=== PATIENT | female | born 1985 | race African-American/Black ===

== ENCOUNTER 2016-07-16 07:20 | Emergency (ER) | payer SELFPAY ==
[2016-07-16] MEDS ORDERED: Ketorolac INJ* 60 MG/2 ML VIAL IM ONE (07:53)
[2016-07-16 08:13] LABS: Urine Bilirubin Negative (Negative); Urine Glucose Negative (Negative); Urine Nitrite Negative (Negative)
--- NOTE | 2016-07-16 08:17 | ED ---
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 States pain has been present for a few days, but became worse last night. Denies urinary symptoms. Pain is worse while arms are raised and standing and radiates to the left rib area. Improved with sitting. Sensitive to the touch. Pain is achy and stabbing intermittently. Denies chest pain or pressure. Denies fever. Denies abdominal pain or PMHx of kidney stones or UTI. Denies numbness or tingling in her arms. Denies trauma, recent surgeries, recent travel. Patient not on BC. - History of Current Complaint Chief Complaint: EDBackInjuryPain Stated Complaint: LT SIDE FLANK PAIN Time Seen by Provider: 07/16/16 07:31 Hx Obtained From: Patient Onset/Duration: Gradual Onset Onset/Duration: Started Days Ago Timing: Intermittent Back Pain Location: Is Discrete @ - left sided thoracic back Severity Initially: Moderate Severity Currently: Moderate Pain Intensity: 9 Pain Scale Used: 0-10 Numeric Character: Sharp, Aching Aggravating Symptom(s): Movement, Lifting Alleviating Symptom(s): Rest, Position Associated Signs And Symptoms: Positive: Negative - Risk Factors AAA Risk Factors: Negative TAD Risk Factors: Negative Cauda Equina Risk Factors: Negative Epidural Abscess Risk Factors: Negative - Allergies/Home Medications Allergies/Adverse Reactions: Allergies Allergy/AdvReac Type Severity Reaction Status Date / Time No Known Allergies Allergy Verified 05/27/14 11:13 PMH/Surg Hx/FS Hx/Imm Hx Previously Healthy: Yes Psychiatric History: Reports: Hx Anxiety, Hx Depression Infectious Disease History: No Infectious Disease History: Denies: Traveled Outside the [place] in Last 30 Days - Social History Occupation: Employed Full-time Lives: With Family Alcohol Use: None Substance Use Type: Reports: None Smoking Status (MU): Light Every Day Tobacco Smoker Type: Cigarettes Have You Smoked in the Last Year: Yes Review of Systems Constitutional: Negative Eyes: Negative Cardiovascular: Negative Positive: Shortness Of Breath - feels does not want to take a breath d/t back pain Gastrointestinal: Negative Genitourinary: Negative Positive: Myalgia - discrete at left thoracic side, Decreased ROM - unable to raise arms bilaterally d/t pain in back Skin: Negative Neurological: Negative Psychological: Normal All Other Systems Reviewed And Are Negative: Yes Physical Exam Triage Information Reviewed: Yes Vital Signs On Initial Exam: Initial Vitals Temp Pulse Resp BP Pulse Ox 97.8 F 92 16 147/79 99 07/16/16 07:23 07/16/16 07:23 07/16/16 07:23 07/16/16 07:23 07/16/16 07:23 Vital Signs Reviewed: Yes Appearance: Positive: Well-Appearing, Well-Nourished, Pain Distress Skin: Positive: Warm Head/Face: Positive: Normal Head/Face Inspection Eyes: Positive: EOMI Neck: Positive: Supple, Nontender Respiratory/Lung Sounds: Positive: Clear to Auscultation Cardiovascular: Positive: Normal Bowel Sounds: Positive: Present Musculoskeletal: Positive: Limited @ - left sided thoracic area - unable to raise arms bilaterally, Pain @ - left thoracic back Neurological: Positive: Sensory/Motor Intact, Reflexes Intact, Speech Normal Psychiatric: Positive: Normal AVPU Assessment: Alert Diagnostics - Vital Signs Vital Signs Temp Pulse Resp BP Pulse Ox 07/16/16 07:23 97.8 F 92 16 147/79 99 - Laboratory Lab Statement: Any lab studies that have been ordered have been reviewed, and results considered in the medical decision making process. Back Pain Course/Dx - Course Course Of Treatment: UA WNL. Pain reproducible on palpation of area and during physical exam while raising arms. This pain is likely muscular. Patient given toradol with improvement of symptoms. Rx for flexiril and follow up with PCP. Patient agrees with plan. - Diagnoses Differential Diagnosis/HQI/PQRI: Positive: Herniated Disc, Strain, Sprain Provider Diagnoses: Muscle strain of left upper back Images - Images Full Body (No Head): 1 - pain, tightness, tenderness on palpation Discharge - Discharge Plan Condition: Stable Disposition: HOME Patient Education Materials: Muscle Strain (ED) Additional Instructions: Dx. Muscle Strain Flexeril: This medication is a muscle relaxant and can help relieve muscle spasms, muscle strain, or pain sensations. Flexeril can cause side effects that may impair your thinking or reactions. Be careful if you drive or do anything that requires you to be awake and alert. Avoid drinking alcohol, which can increase some of the side effects of Flexeril. Ibuprofen 600mg three times daily with meals as needed for pain and inflammation. Heating pad to the area (preferably moist heat) several times per day until discomfort has subsided. Follow up with your PCP.
[2016-07-16] MEDS ORDERED: Cyclobenzaprine TAB* 10 MG PO ONE (08:42)
[2016-07-16 09:02] VITALS: BP 138/71
== END 2016-07-16 09:00 | disposition home or self-care (01) ==
LOC: ED 07:20
DX: M54.9 Dorsalgia, unspecified (principal); F17.210 Nicotine dependence, cigarettes, uncomplicated; R06.02 Shortness of breath
CPT/HCPCS: 81003; 96372; 99282; A9270-GY; J1885

== ENCOUNTER 2016-11-16 08:14 | Emergency (ER) | payer SELFPAY ==
--- NOTE | 2016-11-16 10:28 | UC ---
Throat Pain/Nasal Shreman HPI - HPI Summary HPI Summary: 31 y/o female presents to the clinic c/o of RT jaw pain and sore throat for the past 2 days. Pt denies fever , cough, SOB, N/V/D. chest pain, sick contact , abdominal pain. Patient states her pain is 7/10 and is difficulty to swallow and associated with RT ear pain. - History of Current Complaint Hx Obtained From: Patient Hx Last Menstrual Period: 11/16/16 ?: No Onset/Duration: Gradual Onset, Lasting Days, Still Present Severity: Moderate Pain Intensity: 7 Pain Scale Used: 0-10 Numeric Associated Signs & Symptoms: Positive: Dysphagia, Other - RT jaw pain and ear pain. Negative: Sinus Discomfort, Nasal Discharge, Fever, Vomiting, Rash - Epiglottits Risk Factors Epiglottis Risk Factors: Negative <Tressa Ruano - Last Filed: 11/16/16 11:06> <Vannessa Vee - Last Filed: 11/16/16 14:35> - History of Current Complaint Chief Complaint: UCEar Stated Complaint: EAR COMPLAINT Time Seen by Provider: 11/16/16 10:26 - Allergies/Home Medications Allergies/Adverse Reactions: Allergies Allergy/AdvReac Type Severity Reaction Status Date / Time No Known Allergies Allergy Verified 11/16/16 08:54 PMH/Surg Hx/FS Hx/Imm Hx Previously Healthy: Yes - Surgical History Surgical History: None - Family History Known Family History: Positive: Cardiac Disease, Hypertension - Social History Occupation: Employed Full-time Lives: With Family Alcohol Use: Occasionally Substance Use Type: None Smoking Status (MU): Light Every Day Tobacco Smoker Type: Cigarettes Amount Used/How Often: 4-5 CIG/DAY Have You Smoked in the Last Year: Yes Household Exposure Type: Cigarettes - Immunization History Most Recent Influenza Vaccination: FALL 2015 Most Recent Tetanus Shot: 03/07/14 Most Recent Pneumonia Vaccination: never <Tressa Ruano - Last Filed: 11/16/16 11:06> Review of Systems Constitutional: Negative Skin: Negative Eyes: Negative ENT: Sore Throat, Ear Ache Respiratory: Negative Cardiovascular: Negative Gastrointestinal: Negative Genitourinary: Negative Motor: Negative Neurovascular: Negative Musculoskeletal: Negative Neurological: Negative Psychological: Negative All Other Systems Reviewed And Are Negative: Yes <Tressa Ruano - Last Filed: 11/16/16 11:06> Physical Exam Triage Information Reviewed: Yes Vital Signs: Initial Vital Signs Temp 98.8 F 11/16/16 08:55 Pulse 78 11/16/16 08:55 Resp 16 11/16/16 08:55 BP 130/74 11/16/16 08:55 Pulse Ox 99 11/16/16 08:55 - Additional Comments Vital signs reviewed Physical exam: General: Well developed, well-nourished patient with NAD. Head and face: Normocephalic and atraumatic Eyes: PERRLA, EOMI x 2. Normal conjunctiva. No eye discharge. ENT: Ears and TM with normal limits. Nose: with pink mucosa and no nasal discharge. Pharynx with mild erythema, no exudate. Neck: Supple, no JVD, no carotid bruits and positive RT anterior cervical lymphadenopathy swollen and and tender to palpation.. Lungs: clear, no rales, no rhonchi, no wheezes. CVS: RRR, S1 and S2 present no murmurs or gallops appreciated. Abdomen: soft nontender with positive bowel sounds. Extremities: no edema noted. Neuro: WNL. <Tressa Ruano - Last Filed: 11/16/16 11:06> Vital Signs: Initial Vital Signs Temp 98.8 F 11/16/16 08:55 Pulse 78 11/16/16 08:55 Resp 16 11/16/16 08:55 BP 130/74 11/16/16 08:55 Pulse Ox 99 11/16/16 08:55 <Vannessa Vee - Last Filed: 11/16/16 14:35> Throat Pain/Nasal Course/Dx - Course Course Of Treatment: Soret throat with RT jaw pain and ear pain: Hx obtained. PE abnormal finding: Nose: with pink mucosa and no nasal discharge. Pharynx with mild erythema, no exudate. Neck: Supple, no JVD, no carotid bruits and positive RT anterior cervical lymphadenopathy swollen and and tender to palpation.. Rapid strep ordered. Results: negative. Pt requested Ibuprofen at the clinic since for pain. Pt tolerated well medicationa and pain decrease. 09/12. PT advised to Increase fluid intake and rest. Use Ibuprofen with the stomach full to decrease inflammation, and alleviate symptoms. Return to the clinic or call your PCP if symptoms do not improve. Pt understood and agreed - Differential Dx/Diagnosis Differential Diagnosis/HQI/PQRI: Laryngitis, Otitis Media, Peritonsillar Abscess , Pharyngitis, Tonsillitis, URI Provider Diagnoses: viral pharyngitis. <Tressa Ruano - Last Filed: 11/16/16 11:06> Discharge <Tressa Ruano - Last Filed: 11/16/16 11:06> <Vannessa Vee - Last Filed: 11/16/16 14:35> - Discharge Plan Condition: Stable Disposition: HOME Prescriptions: Ibuprofen TAB* [Motrin TAB* 800 MG] 800 mg PO Q6H #20 tab Patient Education Materials: Pharyngitis (ED) Referrals: No Primary Care Phys,NOPCP [Primary Care Provider] - [facility] [place] [Outside] Additional Instructions: Please Increase fluid intake and rest. Use Ibuprofen with the stomach full to decrease inflammation, and alleviate symptoms. Return to the clinic or call your PCP if symptoms do not improve.
[2016-11-16] MEDS ORDERED: Ibuprofen TAB* 400 MG PO ONE (10:47)
[2016-11-16 11:26] VITALS: BP 139/78
== END 2016-11-16 11:15 | disposition home or self-care (01) ==
LOC: UCEAST 08:14
DX: J02.8 Acute pharyngitis due to other specified organisms (principal); B97.89 Other viral agents as the cause of diseases classified elsewhere; F17.210 Nicotine dependence, cigarettes, uncomplicated
CPT/HCPCS: 87651; 99212; A9270-GY; G0463

== ENCOUNTER 2017-03-29 10:32 | Emergency (ER) | payer OTHER ==
[2017-03-29 11:52] LABS: Manual Entry Verification CAS0014; UR Preg Internal Control QC Line Present
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
[2017-03-29 12:15] VITALS: BP 124/81
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
== END 2017-03-29 12:50 | disposition home or self-care (01) ==
LOC: ED 10:32
DX: S06.9X9A Unspecified intracranial injury with loss of consciousness of unspecified duration, initial encounter (principal); S00.93XA Contusion of unspecified part of head, initial encounter; W22.8XXA Striking against or struck by other objects, initial encounter; Y93.89 Activity, other specified; Y92.89 Other specified places as the place of occurrence of the external cause; R11.2 Nausea with vomiting, unspecified; R51 Headache; Z32.02 Encounter for pregnancy test, result negative; F41.9 Anxiety disorder, unspecified; F32.9 Major depressive disorder, single episode, unspecified; F17.210 Nicotine dependence, cigarettes, uncomplicated
CPT/HCPCS: 70450; 81025; 99282

== ENCOUNTER 2018-01-26 22:36 | Emergency (ER) | payer OTHER ==
--- NOTE | 2018-01-26 23:45 | ED ---
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. She describes the pain as pressure and discomfort. She states the pain radiates to the back. The patient rates the pain 8/10 in severity. Symptoms aggravated by stretching and movement. Symptoms alleviated by nothing. Patient reports shortness of breath and nausea since resolved. She additionally complains of back pain that began this morning. Patient is a smoker. She has cardiac FHx. - History of Current Complaint Chief Complaint: EDChestPainROMI Time Seen by Provider: 01/26/18 23:36 Hx Obtained From: Patient Onset/Duration: Started Hours Ago - 17:00 today, Still Present Timing: Constant Current Severity: Severe Pain Intensity: 8 Pain Scale Used: 0-10 Numeric Chest Pain Radiates: Yes Chest Pain Radiates To:: Back Character: Pressure/Squeezing, Other: - discomfort Aggravating Factor(s): Movement, Other: - stretching Alleviating Factor(s): Nothing Associated Signs and Symptoms: Positive: Other: - shortness of breath and nausea since resolved - Allergy/Home Medications Allergies/Adverse Reactions: Allergies Allergy/AdvReac Type Severity Reaction Status Date / Time No Known Allergies Allergy Verified 01/26/18 23:35 PMH/Surg Hx/FS Hx/Imm Hx Previously Healthy: No Endocrine/Hematology History: Denies: Hx Anticoagulant Therapy, Hx Diabetes Psychiatric History: Reports: Hx Anxiety, Hx Depression - Immunization History Date of Influenza Vaccine: 02/2017 Infectious Disease History: No Infectious Disease History: Denies: Traveled Outside the [place] in Last 30 Days - Family History Known Family History: Positive: Cardiac Disease, Hypertension - Social History Alcohol Use: Occasionally Hx Substance Use: No Substance Use Type: Reports: None Hx Tobacco Use: Yes Smoking Status (MU): Light Every Day Tobacco Smoker Type: Cigarettes Amount Used/How Often: 4-5 CIG/DAY Have You Smoked in the Last Year: Yes Review of Systems Positive: Chest Pain Positive: Shortness Of Breath Positive: Nausea - since resolved All Other Systems Reviewed And Are Negative: Yes Physical Exam - Summary Physical Exam Summary: Appearance: Well-appearing, Well-nourished, lying in bed comfortably Skin: Warm, dry, no obvious rash Eyes: sclera anicteric, no conjunctival pallor ENT: mucous membranes moist, pharynx appears normal Neck: Supple, nontender Respiratory: Clear to auscultation, no signs of respiratory distress Cardiovascular: Normal S1, S2. No murmurs. Normal distal pulses in tibial and radial bilaterally. Abdomen: Soft, nontender, normal active bowel sounds present Musculoskeletal: Normal, Strength/ROM Intact Neurological: A&Ox3, awake and alert, mentation is normal, speech is fluent and appropriate Psychiatric: affect is normal, does not appear anxious or depressed Triage Information Reviewed: Yes Vital Signs On Initial Exam: Initial Vitals Temp Pulse Resp BP Pulse Ox 97.6 F 101 22 137/84 98 01/26/18 22:41 01/26/18 22:41 01/26/18 22:41 01/26/18 22:41 01/26/18 22:41 Vital Signs Reviewed: Yes Diagnostics - Vital Signs Vital Signs Temp Pulse Resp BP Pulse Ox 01/26/18 22:41 97.6 F 101 22 137/84 98 - Laboratory Lab Statement: Any lab studies that have been ordered have been reviewed, and results considered in the medical decision making process. - Radiology CXR Radiology Interpretation Completed By: ED Physician - Normal CXR. Pending official report. - EKG 2248 Cardiac Rate: Tachycardia - 93 BPM EKG Rhythm: Sinus Rhythm EKG Interpretation: Prolonged HI interval Chest Pain Course/Dx - Diagnoses Provider Diagnoses: Chest pain Discharge - Sign-Out/Discharge Documenting (check all that apply): Patient Departure - Discharge - Discharge Plan Condition: Good Disposition: HOME Patient Education Materials: Chest Wall Pain (ED) Referrals: Care [facility] [Outside] No Primary Care Phys,NOPCP [Primary Care Provider] - - Billing Disposition and Condition Condition: GOOD Disposition: Home - Attestation Statements Document Initiated by Scribe: Yes Documenting Scribe: Tiana Espinoza Provider For Whom Toshia is Documenting (Include Credential): Raji Tobin MD Scribe Attestation: Tiana Martins, scribed for Raji Tobin MD on 01/28/18 at 0209. Scribe Documentation Reviewed: Yes Provider Attestation: The documentation as recorded by the scribeTiana accurately reflects the service I personally performed and the decisions made by me, Raji Tobin MD
[2018-01-27 01:03] VITALS: BP 131/90
--- NOTE | 2018-01-27 10:22 | RAD ---
INDICATION: Upper back and chest pain /pressure. History of smoking. COMPARISON: June 26, 2011 TECHNIQUE: Dual energy PA and routine lateral views of the chest were obtained. REPORT: Accounting for superimposed soft tissues and normal bronchovascular markings the lungs and pleural spaces are clear. Negative for pneumothorax. The heart, pulmonary vasculature, and mediastinal contours are unremarkable. Unremarkable soft tissue contours and osseous structures. IMPRESSION: #. No evidence for acute intrathoracic disease. R1
== END 2018-01-27 01:07 | disposition home or self-care (01) ==
LOC: ED 22:36
DX: R07.9 Chest pain, unspecified (principal); F17.210 Nicotine dependence, cigarettes, uncomplicated; Z82.49 Family history of ischemic heart disease and other diseases of the circulatory system
CPT/HCPCS: 36415; 71046; 84484; 93005; 99283